=== PATIENT | female | born 1985 | race Caucasian/White ===

== ENCOUNTER 2023-08-02 09:31 | Emergency (ER) | payer OTHER, SELFPAY ==
[2023-08-02 09:35] VITALS: BP 133/81; PULSE 78; RESP 18; TEMP 36.6; O2SAT 98; BMI 32.8
--- NOTE | 2023-08-02 10:05 | XR_ITS ---
The [address] [address] Patient Name: FARHANA NERI MRN: [id number] date: 1985 Sex: F Assigned Patient Location: ER Current Patient Location: ER Accession/Order Number: [id number] Exam Date: 08/02/2023 10:18 Report Date: 08/02/2023 10:35 At the request of: SHARON JORDAN Procedure: XR chest 2V EXAM: Chest x-ray HISTORY: . sob . COMPARISON: None. TECHNIQUE: Frontal and lateral chest FINDINGS: Heart and vascularity are unremarkable. Lungs are free of focal infiltrates. No acute bony abnormality is appreciated. XR/XR chest 2V IMPRESSION: No acute heart or lung disease identified. Electronically authenticated by: ARNOLDO GUERRERO Date: 08/02/2023 10:35
--- NOTE | 2023-08-02 10:09 | ED.GENADUL1 ---
HPI - General Adult General Chief complaint: Back Pain/Injury Stated complaint: BACK PAIN Time Seen by Provider: 08/02/23 10:05 Source: patient Mode of arrival: walk-in Limitations: no limitations History of Present Illness HPI narrative: Patient is a 37-year-old female who is presenting to the Emergency Room with chief complaint swelling sensation to the right upper thoracic area for over a year, also swelling sensation radiating to the right lateral chest wall intermittently for over a year. Patient states that she feels nodules her right upper chest wall, she is concern for lymphoma. Patient states she's been having more shortness of breath with exertion last 2 or 3 days, she's not short of breath at rest. 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. Patient is not on -control, nonsmoking, no recent traveling. Patient's mother did have blood clots, Patient's mother also has factor V Leiden. 's patient has not been tested for any type of clotting disease. Patient has no bowel pain, nausea or vomiting. Patient states she has intermittent numbness and tingling to the right arm and right leg. Patient has not had any blood work and a long time. Patient saw her PCP in the office a year ago and thought it may be muscle skeletal, she's done anti-inflammatories, ice relief of her symptoms. . All systems are negative except as noted/marked. All systems reviewed and otherwise negative. . Nurses note and vital signs reviewed and patient is not hypoxic. General: The patient appears well and in no apparent distress. Patient is resting comfortably on cart. Patient is not toxic, lethargic, or listless Skin: Warm, dry, no pallor noted. There is no rash noted. No petechiae, purpura. Head: Normocephalic, atraumatic; Patient has no palpable anterior posterior cervical lymphadenopathy. Patient has no Palpable auricular lymph nodes palpated. Patient denies any lymph nodes of bilateral inguinal area. Eye: Normal conjunctiva, no drainage, EOMI. PERRL Ears, Nose, Mouth, and Throat: oral mucosa is moist. Nares patent. Mouth without vesicles. Cardiovascular: Regular Rate and Rhythm, no murmur, gallop, rub. Patient says she has a sensation of a small nodule to the right upper parasternal area between the 3rd and 4th intercostal space. Patient shows me the area she feels a nodule, I feel patient's rib touching and well rubbing over the area is going into the 3rd and 4th intercostal space. Slight tenderness to palpation today. I do not palpate nodules. Patient has no palpable axillary lymph nodes bilateral. Respiratory: Patient is in no distress, no accessory muscle use, lungs are clear to auscultation, no wheezing, rales or rhonchi Back: Patient may have slightlySwelling to the right upper thoracic area compared to the left, no rash, no lipoma or mass palpated. Mild tenderness to palpation to the right upper parathoracic soft tissue, no tenderness to palpation to right trapezius muscle. No tenderness to palpation to left upper thoracic area, no midline tenderness, otherwise rest of her back is non-tender, no CVA tenderness bilaterally to percussion. No CT LS midline pain Besides above-mentioned GI: soft, no tenderness to palpation, no masses appreciated. No rebound, guarding, or rigidity noted. No flank pain bilateral, No distention Musculoskeletal: Patient has full range of motion of all of the extremities, no motor, sensory, or focal neurological deficits Neurological: A&O x3, normal speech Psychiatric: Cooperative Related Data Allergies Allergy/AdvReac Type Severity Reaction Status Date / Time bee venom protein (honey bee) Allergy Verified 08/02/23 09:39 [facility] Social History Smoking status: Never smoker Exam Constitutional Vital Signs, click to edit/add: Last Vital Signs Temp 97.8 F 08/02/23 09:35 Pulse 78 08/02/23 09:35 Resp 18 08/02/23 09:35 BP 133/81 08/02/23 09:35 Pulse Ox 98 08/02/23 09:35 O2 Del Method Room Air 08/02/23 09:35 Course Vital Signs Vital signs: Vital Signs Temperature 97.8 F 08/02/23 09:35 Pulse Rate 78 08/02/23 09:35 Respiratory Rate 18 08/02/23 09:35 Blood Pressure 133/81 08/02/23 09:35 Pulse Oximetry 98 08/02/23 09:35 Oxygen Delivery Method Room Air 08/02/23 09:35 Temperature 97.8 F 08/02/23 09:35 Pulse Rate 78 08/02/23 09:35 Respiratory Rate 18 08/02/23 09:35 Blood Pressure 133/81 08/02/23 09:35 Pulse Oximetry 98 08/02/23 09:35 Oxygen Delivery Method Room Air 08/02/23 09:35 Medical Decision Making MDM Narrative Medical decision making narrative: Patient has ongoing symptoms for months to year. Patient chief concern is lymphoma. Lab work, chest x-ray will be done. Patient has been more short of breath last 2 or 3 days, patient's mother had blood clots in his factor V Leiden positive. Patient chest x-ray shows no acute pathology. Labwork shows no acute changees.Patient will follow-up with PCP for further outpatient testing. Patient's currently in the process of scheduling her MRI of her chest and upper thoracic area for ongoing issues for months to years. No obvious significant concerning signs and patient CBC with differential, patient was concerned with lymphoma. No abnormal chest x-ray findings. Patient will follow-up with PCP, no questions at discharge. Lab Data Lab results reviewed: Yes I reviewed the patient's lab results Labs: Lab Results 08/02/23 Range/Units 10:11 WBC 6.6 (4.0-11.0) 10^3/uL RBC 4.15 L (4.20-5.40) 10^6/uL Hgb 11.1 L (12.0-16.0) g/dL Hct 35.4 L (36.0-48.0) % MCV 85.3 (81.0-99.0) fL MCH 26.7 (26.7-34.0) pg MCHC 31.4 (29.9-35.2) g/dL RDW 13.6 (11.0-15.0) % Plt Count 300 (150-450) 10^3/uL MPV 9.1 L (9.5-13.5) fL Neut % (Auto) 69.1 (43.0-75.0) % Lymph % (Auto) 24.3 (20.5-60.0) % [place] % (Auto) 5.0 (1.7-12.0) % Eos % (Auto) 1.1 (0.9-7.0) % Baso % (Auto) 0.2 (0.2-2.0) % Neut # (Auto) 4.6 (1.4-6.5) 10^3/uL Lymph # (Auto) 1.6 (1.2-3.8) 10^3/uL [place] # (Auto) 0.3 (0.3-0.8) 10^3/uL Eos # (Auto) 0.1 (0.0-0.7) 10^3/uL Baso # (Auto) 0.0 (0.0-0.1) 10^3/uL Abs Immat Gran (auto) 0.02 (0.00-0.03) 10^3/uL Imm/Tot Granulo (auto) 0.3 (0.0-0.5) % D-Dimer 0.23 (<=0.59) mg/L FEU Sodium 134 L (136-145) mmol/L Potassium 3.9 (3.5-5.1) mmol/L Chloride 103 (98-107) mmol/L Carbon Dioxide 26.5 (21.0-32.0) mmol/L Anion Gap 8.4 BUN 19.0 H (7.0-18.0) mg/dL Creatinine 0.65 (0.55-1.02) mg/dL Est GFR ( Amer) >60 (>=60) Est GFR (Non-Af Amer) >60 (>=60) BUN/Creatinine Ratio 29.2 Glucose 104 (74-106) mg/dL Calcium 8.9 (8.5-10.1) mg/dL Magnesium 2.0 (1.8-2.4) mg/dL Total Bilirubin 0.2 (0.2-1.0) mg/dL AST 12 L (15-37) U/L ALT 32 (14-59) U/L Alkaline Phosphatase 133 H (46-116) U/L Total Creatine Kinase 68 (26-192) U/L Total Protein 7.3 (6.4-8.2) g/dL Albumin 3.2 L (3.4-5.0) g/dL Globulin 4.1 g/dL Albumin/Globulin Ratio 0.8 Lipase 39.0 (16.0-77.0) U/L TSH 1.667 (0.358-3.740) uIU/mL Imaging Data Chest x-ray: Radiologist's impression: ITS Impressions Chest X-Ray 08/02/23 10:05 IMPRESSION: No acute heart or lung disease identified. Electronically authenticated by: ARNOLDO GUERRERO Date: 08/02/2023 10:35 Discharge Plan Discharge Chief Complaint: Back Pain/Injury Clinical Impression: Thoracic back pain Patient Disposition: Home, Self-Care Stand Alone Forms: Portal Instructions Referrals: Physician,Non-Staff, MD [Primary Care Provider] - 1 week
[2023-08-02 10:19] LABS: Basophils Percent Auto 0.2 % (0.2-2.0); Eosinophils Absolute Auto 0.1 10^3/uL (0.0-0.7); Eosinophils Percent Auto 1.1 % (0.9-7.0); Hematocrit 35.4 % (36.0-48.0); Hemoglobin 11.1 g/dL (12.0-16.0); Immature Granulocytes Abs Auto 0.02 10^3/uL (0.00-0.03); Immature Granulocytes Pct Auto 0.3 % (0.0-0.5); Lymphocytes Absolute Auto 1.6 10^3/uL (1.2-3.8); Lymphocytes Percent Auto 24.3 % (20.5-60.0); Mean Corpuscular HGB Conc 31.4 g/dL (29.9-35.2); Mean Corpuscular Hemoglobin 26.7 pg (26.7-34.0); Mean Corpuscular Volume 85.3 fL (81.0-99.0); Mean Platelet Volume 9.1 fL (9.5-13.5); Monocytes Absolute Auto 0.3 10^3/uL (0.3-0.8); Neutrophils Absolute Auto 4.6 10^3/uL (1.4-6.5); Neutrophils Percent Auto 69.1 % (43.0-75.0); Platelet Count 300 10^3/uL (150-450); Red Blood Count 4.15 10^6/uL (4.20-5.40); Red Cell Distribution Width 13.6 % (11.0-15.0); White Blood Count 6.6 10^3/uL (4.0-11.0)
[2023-08-02] MEDS: 0.9 % SODIUM CHLORIDE 1,000 ML 999 ML IV (10:24)
[2023-08-02 10:32] LABS: D Dimer 0.23 mg/L FEU (<=0.59)
[2023-08-02 10:34] LABS: Creatine Kinase 68 U/L (26-192)
[2023-08-02 10:35] LABS: Alanine Aminotransferase 32 U/L (14-59); Albumin Globulin Ratio 0.8; Albumin Level 3.2 g/dL (3.4-5.0); Alkaline Phosphatase 133 U/L (46-116); Anion Gap 8.4; Aspartate Amino Transferase 12 U/L (15-37); BUN Creatinine Ratio 29.2; Bilirubin Total 0.2 mg/dL (0.2-1.0); Calcium 8.9 mg/dL (8.5-10.1); Carbon Dioxide 26.5 mmol/L (21.0-32.0); Chloride 103 mmol/L (98-107); Estimated GFR (African America >60 (>=60); Estimated GFR (Non-African Ame >60 (>=60); Globulin 4.1 g/dL; Glucose 104 mg/dL (74-106); Potassium 3.9 mmol/L (3.5-5.1); Sodium 134 mmol/L (136-145); Total Protein 7.3 g/dL (6.4-8.2)
[2023-08-02 10:44] LABS: Thyroid Stimulating Hormone 1.667 uIU/mL (0.358-3.740)
[2023-08-02 11:58] LABS: Bilirubin Urine NEGATIVE (NEGATIVE); Blood Urine NEGATIVE (NEGATIVE); Color Urine YELLOW (YELLOW); Glucose Urine UA NEGATIVE (NEGATIVE); Ketones Urine NEGATIVE (NEGATIVE); Leukocyte Esterase Urine TRACE (NEGATIVE); Nitrite Urine NEGATIVE (NEGATIVE); Protein Urine NEGATIVE (NEG/TRACE); Specific Gravity Urine >=1.030 (1.005-1.025); Urobilinogen Urine 0.2 EU/dL (0.2-1.0); pH Urine 5.5 (5.0-9.0)
[2023-08-02 11:59] LABS: Clarity Urine CLOUDY (CLEAR)
[2023-08-02 12:05] LABS: Amorphous Sediment Urine MANY; Bacteria Urine NONE SEEN #/HPF (NONE SEEN); Cast Seen? NONE SEEN #/LPF (NONE SEEN); Crystals Seen? None Seen #/HPF (None Seen); Mucus Urine NONE SEEN (NONE SEEN); RBC Urine NONE SEEN #/HPF (0-2); Squamous Epithelial Cell Urine FEW #/LPF (NONE/RARE); WBC Urine 0-2 #/HPF (NONE SEEN)
== END 2023-08-02 11:56 | disposition home or self-care (01) ==
PROVIDERS: Emergency Provider Emergency Medicine; PCP Family Medicine
DX: M54.6 Pain in thoracic spine (principal); R35.0 Frequency of micturition; R39.15 Urgency of urination
CPT/HCPCS: 36415; 71046; 80053; 81001; 82550; 83690; 83735; 84443; 85025; 85378; 87086; 99284